=== PATIENT | female | born 1955 | race Caucasian/White ===

== ENCOUNTER → 2016-11-20 | Outpatient (CLI) | payer BC ==
[~2016-11-20] MED LIST: AMIT50TA95 PO; CALC600T86 PO; ESTR1TAB95 PO; FISH1CAP29 PO; GUAI600T42 PO; MULT-806 PO; PANT40TA32 PO; TRAM-261 PO; ZOLM5TAB3 PO; [UNRECOGNIZED DRUG - CODE] PO; [UNRECOGNIZED DRUG - CODE] PO
== END ==
LOC: IMA 10:07
PROVIDERS: ATTEND Family Medicine
DX: M85.88 Other specified disorders of bone density and structure, other site (principal); E28.39 Other primary ovarian failure; N95.8 Other specified menopausal and perimenopausal disorders; Z90.710 Acquired absence of both cervix and uterus; Z90.722 Acquired absence of ovaries, bilateral